=== PATIENT | female | born 1955 | race Caucasian/White ===

== ENCOUNTER 2016-08-28 12:33 | Emergency (ER) | payer OTHER ==
[2016-08-28 12:40] VITALS: RESP 16; TEMP 98.4
--- NOTE | 2016-08-28 13:24 | CPEKG ---
Heart Rate: 79 RR Interval: 759 P-R Interval: 164 QRSD Interval: 82 QT Interval: 376 QTC Interval: 432 P Reader: 17 QRS Reader: -33 T Wave Reader: 36 EKG Severity - OTHERWISE NORMAL ECG - EKG Impression: SINUS RHYTHM EKG Impression: LEFT AXIS DEVIATION Electronically Signed By: Nadine Griffith 28-Aug-2016 15:14:52
[2016-08-28] MEDS ORDERED: NS 1,000 ML IV ONE (13:59)
--- NOTE | 2016-08-28 14:00 | EDPHY ---
H & P Stated Complaint: palpitations/feels heart racing/icreased urination Time Seen by Provider: 08/28/16 13:26 HPI/ROS: CHIEF COMPLAINT: Palpitations HISTORY OF PRESENT ILLNESS: The patient is a 61 year old female presenting with palpitations that started at 10:30 am. The patient has a monitor that showed rate reaching the 140s. These palpitations lasted for about 1.5 hours. During that time she felt short of breath with intermittent irregular heart beats. She has a significant family history of atrial fibrillation requiring ablation. She denies chest pain. Her symptoms have resolved, she currently feels fatigued. Of note, she recently had upper respiratory symptoms including cough. She also states she's recently had frequent UTIs. REVIEW OF SYSTEMS: Aside from elements discussed in the HPI, a comprehensive 10-point review of systems was reviewed and is negative. PAST MEDICAL HISTORY: Hypothyroid, Depression SOCIAL HISTORY: at bedside. VITAL SIGNS: Reviewed by me GENERAL: Well-developed, well-nourished, resting comfortably in no respiratory distress. HEENT: Atraumatic. Eyes: No icterus, no injection. Mouth: moist mucous membranes. No erythema or lesions. Neck: supple with no adenopathy. LUNGS: Clear to auscultation bilaterally, no wheezes, rhonchi or rales. CARDIAC: Regular rate and rhythm, no rubs, murmurs or gallops. ABDOMEN: Soft, nontender, nondistended, bowel sounds normal. BACK: No CVA tenderness. EXTREMITIES: No trauma. No edema. Range of motion is normal throughout. NEURO: Alert and oriented, grossly nonfocal. SKIN: Warm and dry, no rash. PSYCHIATRIC: Normal mentation, no agitation. Portions of this note were transcribed by a medical case worker. I personally performed a history, physical exam, medical decision making, and confirmed accuracy of information the transcribed note. Source: Patient - Personal History Current Tetanus/Diphtheria Vaccine: Yes - Medical/Surgical History Hx Asthma: No Hx Chronic Respiratory Disease: No Hx Diabetes: No Hx Cardiac Disease: No Hx Renal Disease: No Hx Cirrhosis: No Hx Alcoholism: No Hx HIV/AIDS: No Hx Splenectomy or Spleen Trauma: No Other PMH: HYPOTHYROID, DEPRESSION - Social History Smoking Status: Former smoker Constitutional: Initial Vital Signs Temperature (C) 36.9 C 08/28/16 12:38 Heart Rate 98 08/28/16 12:38 Respiratory Rate 16 08/28/16 12:38 Blood Pressure 162/91 H 08/28/16 12:38 O2 Sat (%) 95 08/28/16 12:38 O2 Delivery Mode Room Air Allergies/Adverse Reactions: Sulfa (Sulfonamide Antibiotics) Allergy (Verified 08/28/16 12:34) Home Medications: Medication Instructions Recorded Progesterone 04/10/15 Synthroid 04/10/15 Trazodone HCl 04/10/15 Ambien 08/28/16 Diclofenac Sodium 08/28/16 Amoxicillin Trihydrate 500 mg PO TID #30 cap 09/02/16 [Amoxicillin] Fluticasone Nasal [Flonase Nasal 2 sprays NASAL DAILY #1 mdi 09/02/16 [place] (RX)] Medical Decision Making - Diagnostics EKG Interpretation: 12-LEAD EKG: Please see the full report in [facility]. My interpretation: Normal sinus rhythm Imaging: X-ray: Chest x-ray was obtained. I viewed the images myself on the PACS system. My interpretation of the images is: No infiltrate, no cardiomegaly. The radiologist interpretation is pending at this time. I discussed the x-ray findings with the patient. ED Course/Re-evaluation: Evaluation the emergency department included labs with a troponin which were all normal. TSH was normal. D-dimer was negative. EKG demonstrates sinus rhythm. No arrhythmias noted on the monitor while the patient was in the emergency department. Long discussion was held with the patient regarding follow-up and consideration of Holter monitoring. Differential Diagnosis: Differential diagnoses for the patient's sensation of palpitations was considered including but not limited to sinus tachycardia, PACs, PVCs, SVT, atrial fibrillation, atrial flutter, anxiety, panic attack. - Data Points Laboratory Results: Laboratory Results 08/28/16 14:00 08/28/16 14:00 Departure - Departure Disposition: Home, Routine, Self-Care Clinical Impression: Palpitations Condition: Good Instructions: Palpitations (ED) Additional Instructions: Your evaluation in the emergency department shows no obvious cause of your palpitations. I suggest that she follow up with Dr. Sanchez and obtained urgent Holter monitoring. Return to the emergency department or seek care urgently if you develop recurrent palpitations, lightheadedness, shortness of breath, dizziness, fevers , chills, chest pain, cough, or other concerns. Referrals: Dottie Ravi MD [Primary Care Provider] - As per Instructions Report Scribed for: Nadine Griffiht Report Scribed by: Essence Moss Date of Report: 08/28/16 Time of Report: 14:00
[2016-08-28 14:20] LABS: % IMMATURE GRANULYOCYTES 0.3 % (0.0-1.1); ABSOLUTE IMMATURE GRANULOCYTES 0.02 10^3/uL (0.00-0.10); ADD DIFF? NO; ADD MORPH? NO; ADD SCAN? NO; ATYPICAL LYMPHOCYTE FLAG 0 (0-99); FRAGMENT RBC FLAG 0 (0-99); HEMATOCRIT 45.6 % (38.0-47.0); HEMOGLOBIN 15.9 g/dL (12.6-16.3); LEFT SHIFT FLG 0 (0-99); LIPEMIA HEMOLYSIS FLAG 90 (0-99); MEAN CELL HEMOGLOBIN 30.8 pg (27.9-34.1); MEAN CELL HEMOGLOBIN CONCENTR. 34.9 g/dL (32.4-36.7); MEAN CELL VOLUME 88.4 fL (81.5-99.8); MEAN PLATELET VOLUME 9.9 fL (8.7-11.7); PLATELET CLUMPS FLAG 0 (0-99); PLATELET COUNT 221 10^3/uL (150-400); RED BLOOD CELL COUNT 5.16 10^6/uL (4.18-5.33); RED CELL DISTRIBUTION WIDTH 13.1 % (11.5-15.2)
[2016-08-28 14:36] LABS: ANION GAP 11 mEq/L (8-16); CALCIUM 9.4 mg/dL (8.5-10.4); CARBON DIOXIDE 26 mEq/l (22-31); CHLORIDE 105 mEq/L (97-110); CREATININE 0.9 mg/dL (0.6-1.0); GLOMERULAR FILTRATION RATE > 60; GLUCOSE 100 mg/dL (70-100); POTASSIUM 4.3 mEq/L (3.5-5.2); SODIUM 142 mEq/L (134-144)
--- NOTE | 2016-08-28 14:42 | DX ---
Chest, PA and Lateral History: Cough. Tachycardia. Findings: There is mild-moderate bronchial wall thickening. Lung volumes are mildly prominent. There is no focal consolidation, infiltrate or effusion. Heart size and pulmonary vascularity are normal. T here is no evidence for pneumothorax or pneumomediastinum. EKG leads overlie the chest. Impression: Possible airways disease without pneumonia. No evidence for CHF.
[2016-08-28 14:49] LABS: TROPONIN I < 0.012 ng/mL (0-0.034)
[2016-08-28 15:15] VITALS: BP 145/106; PULSE 82; O2SAT 94
== END 2016-08-28 15:15 | disposition home or self-care (01) ==
DX: R00.2 Palpitations (principal); Z87.891 Personal history of nicotine dependence

== ENCOUNTER 2016-09-02 19:47 | Emergency (ER) | payer OTHER ==
[2016-09-02 20:15] VITALS: BP 141/83; PULSE 77; RESP 16; TEMP 97.9; O2SAT 95
--- NOTE | 2016-09-02 20:30 | UCPHY ---
H & P Time Seen by Provider: 09/02/16 20:13 Patient Type: Established HPI/ROS: This patient reports 10 day history of nasal congestion associated with some increasing facial pressure to the frontal sinus more than maxillary sinuses bilaterally. She also has a feeling of ear pressure today right more than left ear. The ear symptoms just started today with no clear exacerbating or alleviating factors. She has tried [id number] medications without much improvement. ROS: No high fevers or chills. No other constitutional symptoms. HEENT: No drainage from the ear. Neuro: No confusion. No neck stiffness. Pulmonary: No coughing. 5 point ROS is otherwise negative. Past Medical/Surgical History: Otherwise healthy Smoking Status: Former smoker Physical Exam: Physical Exam Vital signs are normal. General: No acute distress HEENT: Nose: Yellow discharge. Minimal sinus tenderness to percussion to the right frontal sinus. Ears: External canals clear on the right TM is clear with a clear effusion left external canal and TM are clear Eyes: Pupils equal and react to light. Extraocular motions are intact. Lungs: Clear to auscultation bilaterally with no rales rhonchi or wheeze. No respiratory distress. Cardiac: Regular rate and rhythm with no murmur gallop or rub. Skin: No rash or pallor. Neuro: Alert and oriented x3 with no sensorimotor deficits. Viral versus bacterial sinusitis and serous otitis Constitutional: Initial Vital Signs Temperature (C) 36.6 C 09/02/16 20:12 Heart Rate 77 09/02/16 20:12 Respiratory Rate 16 09/02/16 20:12 Blood Pressure 141/83 H 09/02/16 20:12 O2 Sat (%) 95 09/02/16 20:12 O2 Delivery Mode Room Air Allergies/Adverse Reactions: Sulfa (Sulfonamide Antibiotics) Allergy (Verified 08/28/16 12:34) Home Medications: Medication Instructions Recorded Progesterone 04/10/15 Synthroid 04/10/15 Trazodone HCl 04/10/15 Ambien 08/28/16 Diclofenac Sodium 08/28/16 Amoxicillin Trihydrate 500 mg PO TID #30 cap 09/02/16 [Amoxicillin] Fluticasone Nasal [Flonase Nasal 2 sprays NASAL DAILY #1 mdi 09/02/16 [place] (RX)] Departure - Departure Disposition: Home, Routine, Self-Care Clinical Impression: Acute rhinosinusitis Condition: Good Instructions: Serous Otitis Media (ED) Additional Instructions: Diagnosis: Serous otitis 2. Rhinosinusitis Plan: Humidifier Flonase steroid nasal spray If you have worsening symptoms despite the Flonase over the next 3-5 days then start Amoxil in addition. Ibuprofen and Tylenol as needed Return for any significant worsening despite the treatment plan [place]errals: [place],. [Primary Care Provider] - As per Instructions Prescriptions: Amoxicillin Trihydrate [Amoxicillin] 500 mg PO TID #30 cap Fluticasone Nasal [Flonase Nasal [place] (RX)] 2 sprays NASAL DAILY #1 mdi - PQRS PQRS Measurement: NA
== END 2016-09-02 20:51 | disposition home or self-care (01) ==
LOC: CED 19:47
DX: H65.93 Unspecified nonsuppurative otitis media, bilateral (principal); J01.90 Acute sinusitis, unspecified; Z87.891 Personal history of nicotine dependence
CPT/HCPCS: 99214-PO; G0463-PO

== ENCOUNTER 2016-09-05 12:51 | Observation (INO) | payer OTHER ==
[2016-09-05] MEDS ORDERED: DILTIAZEM 125 MG in D5W 125 ML IV ONE (12:58)
[2016-09-05] MEDS ORDERED: ASPIRIN 81 MG CHEWABLE TAB PO ONE (12:58)
[2016-09-05] MEDS ORDERED: NS 1,000 ML IV ONE (12:58)
[2016-09-05] MEDS ORDERED: DILTIAZEM 25 MG/5 ML VIAL IVP ONE (12:58)
--- NOTE | 2016-09-05 13:03 | CPEKG ---
Heart Rate: 137 RR Interval: 438 QRSD Interval: 82 QT Interval: 304 QTC Interval: 459 QRS [place]: -20 T Wave [place]: 59 EKG Severity - ABNORMAL ECG - EKG Impression: ATRIAL FIBRILLATION EKG Impression: BORDERLINE LEFT AXIS DEVIATION EKG Impression: ST DEPRESSION, CONSIDER ISCHEMIA, ANT-LAT LDS Electronically Signed By: Carolann Edwards 06-Sep-2016 09:52:48
[2016-09-05 13:04] LABS: % IMMATURE GRANULYOCYTES 0.4 % (0.0-1.1); ABSOLUTE IMMATURE GRANULOCYTES 0.03 10^3/uL (0.00-0.10); ADD DIFF? NO; ADD MORPH? NO; ADD SCAN? NO; ATYPICAL LYMPHOCYTE FLAG 10 (0-99); FRAGMENT RBC FLAG 0 (0-99); HEMOGLOBIN 16.9 g/dL (12.6-16.3); LEFT SHIFT FLG 0 (0-99); LIPEMIA HEMOLYSIS FLAG 90 (0-99); MEAN CELL HEMOGLOBIN 31.3 pg (27.9-34.1); MEAN PLATELET VOLUME 9.4 fL (8.7-11.7); PLATELET CLUMPS FLAG 10 (0-99); PLATELET COUNT 348 10^3/uL (150-400); RED CELL DISTRIBUTION WIDTH 13.3 % (11.5-15.2)
--- NOTE | 2016-09-05 13:05 | EDPHY ---
H & P HPI/ROS: HPI CHIEF COMPLAINT: Rapid heart rate HISTORY OF PRESENT ILLNESS: This patient very pleasant 59-year-old female, significant past medical history for obstructive sleep apnea, presents emergency room by EMS with fast heart rate and palpitations, lightheadedness and tingling all over body. Patient tells me for the past 2 weeks she has had problems with fast heart rate. Patient tells me that she has been seen by [facility] and has been wearing a Holter monitor to capture this fast heart rate. She denies history of cardiac problems, she denies coronary artery disease or having a stress test. She denies chest pain. Denies shortness of breath. It was noted by EMS that her heart rate is in the 180s AFib with RVR. Currently upon arrival to the emergency room heart rate is in the 150s, she is in AFib with RVR. A Valsalva maneuver was attempted when arrived however did not break her AFib. She does not have chest pain at this time. Past Medical History: Obstructive sleep apnea Past Surgical History: Denies significant surgical history Social History: Denies use of drugs, alcohol, tobacco products Family History: noncontributory ROS REVIEW OF SYSTEMS: A comprehensive 10 point review of systems is otherwise negative aside from elements mentioned in the history of present illness. Exam Constitutional appears well, nontoxic, triage nursing summary reviewed, vital signs reviewed, awake/alert. Eyes normal conjunctivae and sclera, EOMI, PERRLA. HENT normal inspection, atraumatic, moist mucus membranes, no epistaxis, neck supple/ no meningismus, no raccoon eyes. Respiratory clear to auscultation bilaterally, normal breath sounds, no respiratory distress, no wheezing. Cardiovascular tachycardic, irregular, irregular rhythm , no murmur, no edema , distal pulses normal. Gastrointestinal soft, non-tender, no rebound, no guarding, normal bowel sounds, no distension, no pulsatile mass. Genitourinary no CVA tenderness. Musculoskeletal no midline vertebral tenderness, full range of motion, no calf swelling, no tenderness of extremities, no meningismus, good pulses, neurovascularly intact. Skin pink, warm, & dry, no rash, skin atraumatic. Neurologic awake, alert and oriented x 3, AAOx3, moves all 4 extremities equally, motor intact, sensory intact, CN II-XII intact, normal cerebellar, normal vision, normal speech. Psychiatric normal mood/affect. Heme/Lymph/Immune no lymphadenopathy. Differential Diagnosis: includes but is not limited to in a particular order, AFib with RVR, ACS, atypical chest pain, pneumothorax, pneumonia, pulmonary embolism, aortic dissection, congestive heart failure, tumor, musculoskeletal pain, esophageal pain, GERD, peptic ulcer disease, pancreatitis Medical Decision Making: This patient had an IV established be placed on full personnel counselor, she will have an EKG, chest x-ray, blood work it is noted she is in AFib with RVR should be given diltiazem bolus and diltiazem drip. She is not hypotensive. Re-evaluation: EKG interpretation by me on record in [facility] system. Impression time of EKG 1302: this EKG shows AFib rate of [address] depression upsloping in V4 V5 V6 and V3 this is most likely rate-related ischemia. EKG interpretation by me on record in [facility] system. Impression this time of EKG 1326, this is normal sinus rhythm rate of 77 I do not appreciate any significant ST depression or ST elevation or significant abnormality or T-wave abnormality. This EKG is back in sinus rhythm from her previous EKG of AFib with RVR with ST depression from rate-related changes. 1353: Re-evaluation this time this patient is resting comfortably she is not having any chest pain. Blood work, EKG, cardiac marker, chest x-ray all reviewed. She is back in sinus rhythm after diltiazem bolus 20 mg. I did recommend to her that we admit her overnight for AFib with RVR and further cardiac evaluation she has never had a stress test, never had formal evaluation of her arm with an echocardiogram. ED x-ray chest one view: Bilateral airway disease, consider bronchitis, image interpreted myself. No focal pneumonia visualized. 1439: spent a lengthy time with family and patient at bedside discussing options about going home with AFib on diltiazem on Eliquis however patient has declined she does not go home she feels much more comfortable coming to the hospital for evaluation with cardiology specifically she is requesting Dr. Almanzar to see and evaluate her. However explained that he is not on-call however somebody from [facility] can evaluate her. At this time she is hemodynamically stable without any chest pain. She is out of AFib. I have consult the hospitalist service and spoke with Dr. Harp who agrees to admit this patient. Of note this patient has been given Lovenox 1 milligram/ kilogram. Source: Patient, Family, EMS - Medical/Surgical History Hx Asthma: No Hx Chronic Respiratory Disease: No Hx Diabetes: No Hx Cardiac Disease: No Hx Renal Disease: No Hx Cirrhosis: No Hx Alcoholism: No Hx HIV/AIDS: No Hx Splenectomy or Spleen Trauma: No Other PMH: HYPOTHYROID, DEPRESSION, sleep apnea - Social History Smoking Status: Former smoker Constitutional: Initial Vital Signs Temperature (C) 36.8 C 09/05/16 12:51 Heart Rate 166 H 09/05/16 12:51 Respiratory Rate 20 09/05/16 12:51 Blood Pressure 143/111 H 09/05/16 12:51 O2 Sat (%) 99 09/05/16 12:51 O2 Delivery Mode Room Air O2 (L/minute) 2 Allergies/Adverse Reactions: Sulfa (Sulfonamide Antibiotics) Allergy (Verified 08/28/16 12:34) Home Medications: Medication Instructions Recorded Progesterone 04/10/15 Synthroid 04/10/15 Trazodone HCl 04/10/15 Ambien 08/28/16 Diclofenac Sodium 08/28/16 Amoxicillin Trihydrate 500 mg PO TID #30 cap 09/02/16 [Amoxicillin] Fluticasone Nasal [Flonase Nasal 2 sprays NASAL DAILY #1 mdi 09/02/16 [place] (RX)] Medical Decision Making - Data Points Laboratory Results: Laboratory Results 09/05/16 12:30 09/05/16 12:30 09/05/16 12:30 WBC 7.82 10^3/uL (3.80-9.50) RBC 5.40 H 10^6/uL (4.18-5.33) Hgb 16.9 H g/dL (12.6-16.3) Hct 47.0 % (38.0-47.0) MCV 87.0 fL (81.5-99.8) MCH 31.3 pg (27.9-34.1) MCHC 36.0 g/dL (32.4-36.7) RDW 13.3 % (11.5-15.2) Plt Count 348 10^3/uL (150-400) MPV 9.4 fL (8.7-11.7) Neut % (Auto) 59.2 % (39.3-74.2) Lymph % (Auto) 27.4 % (15.0-45.0) [place] % (Auto) 6.1 % (4.5-13.0) Eos % (Auto) 5.6 % (0.6-7.6) Baso % (Auto) 1.3 % (0.3-1.7) Nucleat RBC Rel Count 0.0 % (0.0-0.2) Absolute Neuts (auto) 4.63 10^3/uL (1.70-6.50) Absolute Lymphs (auto) 2.14 10^3/uL (1.00-3.00) Absolute Monos (auto) 0.48 10^3/uL (0.30-0.80) Absolute Eos (auto) 0.44 H 10^3/uL (0.03-0.40) Absolute Basos (auto) 0.10 10^3/uL (0.02-0.10) Absolute Nucleated RBC 0.00 10^3/uL (0-0.01) Immature Gran % 0.4 % (0.0-1.1) Immature Gran # 0.03 10^3/uL (0.00-0.10) PT 12.6 SEC (12.0-15.0) INR 0.95 (0.83-1.16) APTT 27.9 SEC (23.0-38.0) Sodium 144 mEq/L (134-144) Potassium 4.3 mEq/L (3.5-5.2) Chloride 108 mEq/L (97-110) Carbon Dioxide 21 L mEq/l (22-31) Anion Gap 15 mEq/L (8-16) BUN 13 mg/dL (7-23) Creatinine 0.9 mg/dL (0.6-1.0) Estimated GFR > 60 Glucose 111 H mg/dL (70-100) Calcium 10.3 mg/dL (8.5-10.4) Magnesium 2.2 mg/dL (1.6-2.3) Total Bilirubin 1.0 mg/dL (0.1-1.4) Conjugated Bilirubin 0.5 mg/dL (0.0-0.5) Unconjugated Bilirubin 0.5 mg/dL (0.0-1.1) AST 26 IU/L (14-46) ALT 33 IU/L (9-52) Alkaline Phosphatase 74 IU/L (38-126) Creatine Kinase 56 IU/L (0-156) CK-MB (CK-2) Fraction 0.71 ng/mL (0-3.19) Troponin I < 0.012 ng/mL (0-0.034) NT-Pro-B Natriuret Pep 478 H pg/mL (0-125) Total Protein 8.2 g/dL (6.3-8.2) Albumin 4.8 g/dL (3.5-5.0) Lipase 129.0 IU/L (23-300) Medications Given: Discontinued Medications Aspirin (Aspirin) 324 mg PO EDNOW ONE Stop: 09/05/16 12:59 Last Admin: 09/05/16 13:16 Dose: Not Given Diltiazem HCl (Cardizem 25 Mg/5 Ml Vial) 20 mg IVP EDNOW ONE Stop: 09/05/16 12:59 Last Admin: 09/05/16 13:10 Dose: 20 mg Enoxaparin Sodium (Lovenox) 90 mg SC EDNOW ONE Stop: 09/05/16 13:18 Last Admin: 09/05/16 14:19 Dose: Not Given Enoxaparin Sodium (Lovenox) 90 mg SC ONCE ONE Stop: 09/05/16 14:01 Last Admin: 09/05/16 14:19 Dose: 90 mg Diltiazem HCl 125 mg/ Dextrose 150 mls @ 0 mls/hr IV EDNOW ONE; As Directed PRN Reason: Protocol Stop: 09/05/16 12:59 Last Admin: 09/05/16 14:18 Dose: Not Given Sodium Chloride (Ns) 1,000 mls @ 0 mls/hr IV ONCE ONE PRN Reason: As Directed Stop: 09/05/16 12:59 Last Admin: 09/05/16 12:58 Dose: 1,000 mls Departure - Departure Disposition: [facility] Inpatient Acute Clinical Impression: Atrial fibrillation with RVR Condition: Fair Referrals: Dottie Ravi MD [Primary Care Provider] - As per Instructions
[2016-09-05 13:14] LABS: APTT 27.9 SEC (23.0-38.0); INR 0.95 (0.83-1.16); PROTIME(PATIENT) 12.6 SEC (12.0-15.0)
[2016-09-05] MEDS ORDERED: ENOXAPARIN 80 MG/0.8 ML SYR SC ONE (13:17)
[2016-09-05 13:22] LABS: ALANINE AMINOTRANSFERASE 33 IU/L (9-52); ALBUMIN 4.8 g/dL (3.5-5.0); ALKALINE PHOSPHATASE 74 IU/L (38-126); ANION GAP 15 mEq/L (8-16); ASPARTATE AMINOTRANSFERASE 26 IU/L (14-46); BILIRUBIN-CONJUGATED 0.5 mg/dL (0.0-0.5); BILIRUBIN-UNCONJUGATED 0.5 mg/dL (0.0-1.1); CALCIUM 10.3 mg/dL (8.5-10.4); CARBON DIOXIDE 21 mEq/l (22-31); CHLORIDE 108 mEq/L (97-110); CREATININE 0.9 mg/dL (0.6-1.0); GLOMERULAR FILTRATION RATE > 60; GLUCOSE 111 mg/dL (70-100); MAGNESIUM 2.2 mg/dL (1.6-2.3); POTASSIUM 4.3 mEq/L (3.5-5.2); SODIUM 144 mEq/L (134-144); TOTAL PROTEIN 8.2 g/dL (6.3-8.2)
--- NOTE | 2016-09-05 13:28 | CPEKG ---
Heart Rate: 77 RR Interval: 779 P-R Interval: 180 QRSD Interval: 102 QT Interval: 388 QTC Interval: 440 P [place]: 58 QRS [place]: -17 T Wave [place]: 45 EKG Severity - OTHERWISE NORMAL ECG - EKG Impression: SINUS RHYTHM EKG Impression: BORDERLINE LEFT AXIS DEVIATION Electronically Signed By: Carolann Edwards 06-Sep-2016 09:51:58
[2016-09-05 13:34] LABS: CREATINE KINASE-MB FRACTION 0.71 ng/mL (0-3.19); TROPONIN I < 0.012 ng/mL (0-0.034)
--- NOTE | 2016-09-05 13:44 | DX ---
Chest, One View Portable - September 05, 2016, at 1321 hours History: Chest pain. Comparison: August 28, 2016 Findings: Cardiac silhouette is normal in size. Increasing bilateral peribronchial thickening. No pn [place], congestive heart failure, pleural effusion, or pneumothorax. Impression: 1. Worsening bilateral airways disease. 2. Consider chest two views when the patient's medical condition permits.
[2016-09-05] MEDS ORDERED: ENOXAPARIN 100 MG/ML SYR SC ONE (14:00)
--- NOTE | 2016-09-05 15:50 | PDEACUHP ---
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 She has suffered from palpitations intermittently over the past 2 weeks. She recently completed a Holter monitor during which time she had palpitations. She is awaiting an appt at [facility] to review results. However, today, she developed more palpitations and ultimately developed some lightheadedness and some tingling in her arms. Denies CP or SOB. In the ED, she was found to be in A fib with RVR. She received 20 mg IV Diltiazem and spontaneously converted to NSR. Her symptoms completely resolved and the pt was offered discharge home with Diltiazem and Eliquis, but she preferred to stay for further workup and Cardiology consultation. She is admitted to the [facility]. History Information - Allergies/Home Medication List Allergies/Adverse Reactions: Sulfa (Sulfonamide Antibiotics) Allergy (Verified 08/28/16 12:34) Home Medications: Levothyroxine [Synthroid 125 mcg (*)] 125 mcg PO DAILY 04/10/15 [Last Taken ] Progesterone,Micronized [Progesterone] 100 mg PO HS 04/10/15 [Last Taken ] traZODone [traZODONE 50MG (*)] 50 mg PO 04/10/15 [Last Taken 09/03/16] Zolpidem Tartrate [Ambien 10 mg] 5 mg PO 08/28/16 [Last Taken 09/04/16] Estradiol [Estradiol Transdermal Patch] 1 each TD SUWE 09/05/16 [Last Taken ] Fluticasone Propionate [Flonase Allergy Relief] 2 sprays NS 09/05/16 [Last Taken 09/04/16] Herbals/Supplements -Info Only 1 ea PO DAILY 09/05/16 [Last Taken 09/04/16] Liothyronine Sodium [Cytomel 5 mcg (*)] 5 mcg PO DAILY 09/05/16 [Last Taken ] cycloSPORINE 0.05% [Restasis Opht Drops(*)] 2 drop EACHEYE HS 09/05/16 [Last Taken 09/04/16] I have personally reviewed and updated: family history, medical history, social history, surgical history - Past Medical History Additional medical history: sleep apnea, post-menopausal, hypothyroidism - Surgical History Reports: no pertinent surgical hx - Family History Additional family history: mom and multiple siblings required ablation for A fib - Social History Smoking Status: Former smoker Alcohol Use: None Drug Use: None Review of Systems ROS: 10pt was reviewed & negative except for what was stated in HPI & below Physical Exam Temp Pulse Resp BP Pulse Ox 36.8 C 75 18 135/99 H 98 09/05/16 12:51 09/05/16 14:47 09/05/16 14:47 09/05/16 14:47 09/05/16 14:47 Constitutional: no apparent distress Eyes: PERRL Ears, Nose, Mouth, Throat: moist mucous membranes Cardiovascular: regular rate and rhythym, no murmur, rub, or gallop Respiratory: no respiratory distress, clear to auscultation Gastrointestinal: normoactive bowel sounds, soft, non-tender abdomen Skin: warm Musculoskeletal: other (tr b/l peripheral edema) Neurologic: AAOx3 Psychiatric: interacting appropriately Lab Data & Imaging Review 09/05/16 12:30 09/05/16 12:30 WBC 7.82 10^3/uL (3.80-9.50) 09/05/16 12:30 RBC 5.40 10^6/uL (4.18-5.33) H 09/05/16 12:30 Hgb 16.9 g/dL (12.6-16.3) H 09/05/16 12:30 Hct 47.0 % (38.0-47.0) 09/05/16 12:30 MCV 87.0 fL (81.5-99.8) 09/05/16 12:30 MCH 31.3 pg (27.9-34.1) 09/05/16 12:30 MCHC 36.0 g/dL (32.4-36.7) 09/05/16 12:30 RDW 13.3 % (11.5-15.2) 09/05/16 12:30 Plt Count 348 10^3/uL (150-400) 09/05/16 12:30 MPV 9.4 fL (8.7-11.7) 09/05/16 12:30 Neut % (Auto) 59.2 % (39.3-74.2) 09/05/16 12:30 Lymph % (Auto) 27.4 % (15.0-45.0) 09/05/16 12:30 Greer % (Auto) 6.1 % (4.5-13.0) 09/05/16 12:30 Eos % (Auto) 5.6 % (0.6-7.6) 09/05/16 12:30 Baso % (Auto) 1.3 % (0.3-1.7) 09/05/16 12:30 Nucleat RBC Rel Count 0.0 % (0.0-0.2) 09/05/16 12:30 Absolute Neuts (auto) 4.63 10^3/uL (1.70-6.50) 09/05/16 12:30 Absolute Lymphs (auto) 2.14 10^3/uL (1.00-3.00) 09/05/16 12:30 Absolute Monos (auto) 0.48 10^3/uL (0.30-0.80) 09/05/16 12:30 Absolute Eos (auto) 0.44 10^3/uL (0.03-0.40) H 09/05/16 12:30 Absolute Basos (auto) 0.10 10^3/uL (0.02-0.10) 09/05/16 12:30 Absolute Nucleated RBC 0.00 10^3/uL (0-0.01) 09/05/16 12:30 Immature Gran % 0.4 % (0.0-1.1) 09/05/16 12:30 Immature Gran # 0.03 10^3/uL (0.00-0.10) 09/05/16 12:30 PT 12.6 SEC (12.0-15.0) 09/05/16 12:30 INR 0.95 (0.83-1.16) 09/05/16 12:30 APTT 27.9 SEC (23.0-38.0) 09/05/16 12:30 Sodium 144 mEq/L (134-144) 09/05/16 12:30 Potassium 4.3 mEq/L (3.5-5.2) 09/05/16 12:30 Chloride 108 mEq/L (97-110) 09/05/16 12:30 Carbon Dioxide 21 mEq/l (22-31) L 09/05/16 12:30 Anion Gap 15 mEq/L (8-16) 09/05/16 12:30 BUN 13 mg/dL (7-23) 09/05/16 12:30 Creatinine 0.9 mg/dL (0.6-1.0) 09/05/16 12:30 Estimated GFR > 60 09/05/16 12:30 Glucose 111 mg/dL (70-100) H 09/05/16 12:30 Calcium 10.3 mg/dL (8.5-10.4) 09/05/16 12:30 Magnesium 2.2 mg/dL (1.6-2.3) 09/05/16 12:30 Total Bilirubin 1.0 mg/dL (0.1-1.4) 09/05/16 12:30 Conjugated Bilirubin 0.5 mg/dL (0.0-0.5) 09/05/16 12:30 Unconjugated Bilirubin 0.5 mg/dL (0.0-1.1) 09/05/16 12:30 AST 26 IU/L (14-46) 09/05/16 12:30 ALT 33 IU/L (9-52) 09/05/16 12:30 Alkaline Phosphatase 74 IU/L (38-126) 09/05/16 12:30 Creatine Kinase 56 IU/L (0-156) 09/05/16 12:30 CK-MB (CK-2) Fraction 0.71 ng/mL (0-3.19) 09/05/16 12:30 Troponin I < 0.012 ng/mL (0-0.034) 09/05/16 12:30 NT-Pro-B Natriuret Pep 478 pg/mL (0-125) H 09/05/16 12:30 Total Protein 8.2 g/dL (6.3-8.2) 09/05/16 12:30 Albumin 4.8 g/dL (3.5-5.0) 09/05/16 12:30 Lipase 129.0 IU/L (23-300) 09/05/16 12:30 Assessment & Plan Assessment: Atrial fibrillation with RVR (Acute) - new onset. Back in NSR after IV dilt in ED. She also received a 1 mg / kg Lovenox. Chads-vasc score 2, 2.8% stroke risk, based on htn and gender. Pt has h/o htn, but not currently treated, though bp >140/90 here. -Check echo, TSH (?iatrogenic hyperthyroidism) -monitor on tele -cont rate control with short acting diltiazem, transition to long acting on discharge if tolerates well. -will transition from lovenox to eliquis, starting in am. Full PARQ completed regarding risk/benefit of anti-coagulation -initial trop neg, will repeat one more -cardiology consult per pt request Hypothyroidism - She reports her last TSH was normal, but has had low-latanya TSH in past. Will recheck TSH now and add on T3,T4 if low to ensure no iatrogenic hyperthyroidism contributing to new onset A fib. INGRID - home CPAP Post-menopausal - she is on estrogen patch and oral progesterone. This certainly increases her overall cardiovascular risk, but unclear if this could be contributory to A fib. Full code Dispo - obs, likely home in am after echo and cardiology consult
[2016-09-05] MEDS ORDERED: CYCLOSPORINE 0.05% 1 EACH BOX EACHEYE SCH (21:00)
[2016-09-05] MEDS ORDERED: traZODone 50 MG TAB PO SCH (21:00)
[2016-09-05] MEDS ORDERED: NON-FORMULARY NEW DRUG (Fluticasone Propionate [Flonase Allergy Relief] 2 SPRAYS) NS SCH (21:00)
[2016-09-05] MEDS ORDERED: NON-FORMULARY NEW DRUG (Zolpidem Tartrate [Ambien 10 Mg] 5 MG) PO SCH ×2 (21:00)
[2016-09-05] MEDS ORDERED: PROGESTERONE,MICR 100 MG CAP PO SCH (21:00)
[2016-09-05] MEDS ORDERED: FLUTICASONE NASAL 120 SPRAYS/16 GM MDI EACHNARE SCH (21:00)
[2016-09-05] MEDS ORDERED: ZOLPIDEM TARTRATE 5 MG TAB PO SCH (21:00)
[2016-09-05] MEDS: DILTIAZEM 30 MG TAB PO SCH (21:25)
[2016-09-06] MEDS: DILTIAZEM 30 MG TAB PO SCH ×3 (00:16→11:58)
[2016-09-06 05:34] VITALS: RESP 16
[2016-09-06] MEDS ORDERED: APIXABAN 5 MG TAB PO SCH (06:00)
[2016-09-06] MEDS ORDERED: LEVOTHYROXINE 125 MCG TAB PO SCH (06:00)
[2016-09-06 08:30] VITALS: BP 113/70; PULSE 65; TEMP 97.7; O2SAT 96
[2016-09-06] MEDS ORDERED: LIOTHYRONINE SODIUM 5 MCG TAB PO SCH (09:00)
[2016-09-06] MEDS ORDERED: IBUPROFEN 600 MG TAB PO PRN (09:21)
--- NOTE | 2016-09-06 09:36 | ECHO ---
[id number] + + [address] : : [place] [address] : : [phone] + + Adult Echocardiographic Report + -------+ :Name: CANDI GRECO WStudy Date: 09/06/2016 08:08 AM BP: 119/75 mmH g : : Hospital Admission Number: [id number] Locati on: 141: :: 1955 Gender: Female Height: 65 in : :Age: 61 yrs Race: WH Weight: 198 lb : :Reason For Study: new afib : : BSA: 2.0 meter s2 : :History: new onset afib; now NSR : + -------+ MMode/2D Measurements & Calculations IVSd: 0.95 cm RVDd: 2.9 cm FS: 36.4 % Ao root diam: LVPWd: 0.92 cm LVIDd: 4.6 cm EDV(Teich): 2.1 cm LVIDs: 2.9 cm 97.8 ml LA dimension: ESV(Teich): 3.7 cm 33.0 ml EF(Teich): 66.2 % LVLd ap4: 7.5 cm SV(MOD-sp4): EDV(MOD-sp4): 68.0 ml 94.0 ml LVLs ap4: 5.7 cm ESV(MOD-sp4): 26.0 ml EF(MOD-sp4): 72.3 % Normal Measurement Values: + + :LVIDd (3.5-5.7cm) IVSd (0.6-1.1cm) LVPWd (0.6-1.1cm) Aortic Root (2.0-3.7cm)Left Atrium (1.5-4.0cm): :LV Vol(d) (76-115ml) LV Vol(s) (29-48ml) Ejec Fraction (50-65%)PV Kemal (0.6- 1.2m/s) TV Kemal (0.4-1.0m/s) : :MV E Kemal (0.8-1.0m/s)MV A Kemal (0.3-1.0m/s)LVOT Kemal (0.7-1.2m/s) Asc Ao Kemal ( 0.9-1.8m/s) : + + Doppler Measurements & Calculations MV E max kemal: Ao V2 max: LV V1 max: PA V2 max: 104.0 cm/sec 176.0 cm/sec 152.0 cm/sec 114.0 cm/sec MV A max kemal: Ao max PG: LV V1 max PG: PA max P.0 cm/sec 12.4 mmHg 9.2 mmHg 5.2 mmHg MV E/A: 0.98 MV dec time: 0.21 sec TR max kemal: 286.0 cm/sec TR max P.7 mmHg RAP systole: 10.0 mmHg RVSP(TR): 42.7 mmHg Left Ventricle The left ventricle is normal in size and function. There is borderline concentric left ventricular hypertrophy. Ejection Fraction = 65-70%. The left ventricular ejection fraction is calculated at 66.2 %. There is Doppler evidence for diastolic dysfunction. No regional wall motion abnormalities noted. Right Ventricle The right ventricle is normal in size and function. Atria The left atrial size is normal. Right atrial size is normal. A dilated inferior vena cava suggests increased right atrial pressure. Mitral Valve The mitral valve is normal in structure and function. There is mild mitral regurgitation. Tricuspid Valve The tricuspid valve is normal in structure and function. There is no tricuspid stenosis. There is moderate tricuspid regurgitation. Right ventricular systolic pressure is 43mmHg. There is Doppler evidence for mild to moderate pulmonary hypertension. Aortic Valve The aortic valve is trileaflet. There is no aortic stenosis. There is no aortic insufficiency. Pulmonic Valve The pulmonic valve is not well visualized. Great Vessels The aortic root is normal size. Pericardium/Pleural There is no pericardial effusion. Conclusion A two-dimensional transthoracic echocardiogram with M-mode and Doppler was performed. (1) Left ventricular systolic ejection fraction was normal (65-70%) - normal wall motion (2) Borderline left ventricular hypertrophy (3) Diastolic dysfunction was present (4) Normal right ventricular size and function (5) Normal atrial dimensions (6) Mild mitral regurgitation (7) Trileaflet aortic valve without sclerosis or appreciable insufficiency (8) Moderate tricuspid regurgitation - RVSP was estimated to be 40-45 mm Hg (9) Poor visualization of the pulmonic valve (10) No comparison echocardiograms (11) Patient was in normal sinus rhythm over course of this study Final Reading Physician: Chelle Lopez signed on 09/06/2016 09:35 AM Ordering Physician: Capri Harp Performed By: Kenisha Mcneill
[2016-09-06 11:38] LABS: CHOLESTEROL 205 mg/dL (140-220); HIGH DENSITY LIPOPROTEIN 25 mg/dL (40-85); LOW DENSITY LIPOPROTEIN 150 mg/dL (80-100); NON-HIGH DENSITY LIPOPROTEIN 180 mg/dL (90-129); TRIGLYCERIDE 154 mg/dL (35-135); VERY LOW DENSITY LIPOPROTEINS 30 mg/dL (8-25)
--- NOTE | 2016-09-06 14:09 | PDCARCONS ---
Cardiology Consult Reason for Consult: atrial fibrillation Chief Complaint: palpitations Requesting Physician: hospitalist History of Present Illness: Patient is a 61 y/o female with history of hypothyroidism (on therapy) and INGRID ( with CPAP prescribed), but no HTN, HLP, CAD, or DM (per her reports), who presented to [facility] ER with complaints of palpitations. In speaking with the patient and review of ER and hospitalist notes, they symptoms have been noted for the past two weeks. Similar symptoms were noted about 10 years ago in association with a at that time. Moderate degree of stress also accompanied the events ten years ago. Two weeks ago, in the setting of a , the patient began to have salvos of palpitations that felt much like the palpitations of the past that were noted to be atrial fibrillation. Duration of the events over the past several weeks has been up to 4 hours. No associated chest pains or pressure, but today, there was bilateral arm paresthesias noted. No PND or orthopnea has been noted. Work up in the past without overt pathology noted. Patient was trying to get in to be seen by cardiology, and was able to get a holter monitor arranged. The study has been completed, but not formally read. Echocardiogram at bedside today without clear pathology noted - normal left ventricular systolic ejection fraction and grossly normal valve morphology. Of note, there is a significant degree of atrial fibrillation that runs in the family with several family members having ablations. 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 Remainder of the review of systems (10 point) is unremarkable History Information - Allergies/Home Medication List Allergies/Adverse Reactions: Sulfa (Sulfonamide Antibiotics) Allergy (Verified 08/28/16 12:34) Home Medications: Levothyroxine [Synthroid 125 mcg (*)] 125 mcg PO DAILY06 04/10/15 [Last Taken ] Progesterone,Micronized [Progesterone] 100 mg PO HS 04/10/15 [Last Taken ] traZODone [traZODONE 50MG (*)] 50 mg PO HS 04/10/15 [Last Taken 09/03/16] Zolpidem Tartrate [Ambien 10 mg] 5 mg PO HS 08/28/16 [Last Taken 09/04/16] Estradiol [Estradiol Transdermal Patch] 1 each TD SUWE 09/05/16 [Last Taken ] Fluticasone Propionate [Flonase Allergy Relief] 2 sprays NS HS 09/05/16 [Last Taken 09/04/16] Herbals/Supplements -Info Only 1 ea PO DAILY 09/05/16 [Last Taken 09/04/16] Liothyronine Sodium [Cytomel 5 mcg (*)] 5 mcg PO DAILY 09/05/16 [Last Taken ] cycloSPORINE 0.05% [Restasis Opht Drops(*)] 2 drop EACHEYE 09/05/16 [Last Taken 09/04/16] I have personally reviewed and updated: family history, medical history, social history, surgical history - Past Medical History atrial fibrillation - Surgical History Reports: appendectomy - Family History Additional family history: atrial fibrillation - Social History Smoking Status: Former smoker Alcohol Use: None Drug Use: None Cardiac History - Cardiac History Timing/Duration: Weeks Severity: moderate Severity Scale: 5 Location: substernal Activities at Onset: activity, emotional stress Modifying Factors: improves with: rest Associated Symptoms: denies symptoms, shortness of breath Physical Exam Temp Pulse Resp BP Pulse Ox 36.5 C 65 16 113/70 96 09/06/16 08:00 09/06/16 08:00 09/06/16 08:00 09/06/16 08:00 09/06/16 08:00 O2 (L/minute) 2 Constitutional: no apparent distress, appears nourished Eyes: PERRL Ears, Nose, Mouth, Throat: moist mucous membranes Cardiovascular: regular rate and rhythym, no murmur, rub, or gallop, No JVD Peripheral Pulses: 2+: dorsalis-pedis (R), dorsalis-pedis (L) Respiratory: no respiratory distress, clear to auscultation Gastrointestinal: normoactive bowel sounds Skin: warm Musculoskeletal: full muscle strength Neurologic: AAOx3, CN II-XII Intact Psychiatric: interacting appropriately, not anxious, not encephalopathic Lab and Imaging 09/05/16 12:30 09/05/16 12:30 WBC 7.82 10^3/uL (3.80-9.50) 09/05/16 12:30 RBC 5.40 10^6/uL (4.18-5.33) H 09/05/16 12:30 Hgb 16.9 g/dL (12.6-16.3) H 09/05/16 12:30 Hct 47.0 % (38.0-47.0) 09/05/16 12:30 MCV 87.0 fL (81.5-99.8) 09/05/16 12:30 MCH 31.3 pg (27.9-34.1) 09/05/16 12:30 MCHC 36.0 g/dL (32.4-36.7) 09/05/16 12:30 RDW 13.3 % (11.5-15.2) 09/05/16 12:30 Plt Count 348 10^3/uL (150-400) 09/05/16 12:30 MPV 9.4 fL (8.7-11.7) 09/05/16 12:30 Neut % (Auto) 59.2 % (39.3-74.2) 09/05/16 12:30 Lymph % (Auto) 27.4 % (15.0-45.0) 09/05/16 12:30 Glascock % (Auto) 6.1 % (4.5-13.0) 09/05/16 12:30 Eos % (Auto) 5.6 % (0.6-7.6) 09/05/16 12:30 Baso % (Auto) 1.3 % (0.3-1.7) 09/05/16 12:30 Nucleat RBC Rel Count 0.0 % (0.0-0.2) 09/05/16 12:30 Absolute Neuts (auto) 4.63 10^3/uL (1.70-6.50) 09/05/16 12:30 Absolute Lymphs (auto) 2.14 10^3/uL (1.00-3.00) 09/05/16 12:30 Absolute Monos (auto) 0.48 10^3/uL (0.30-0.80) 09/05/16 12:30 Absolute Eos (auto) 0.44 10^3/uL (0.03-0.40) H 09/05/16 12:30 Absolute Basos (auto) 0.10 10^3/uL (0.02-0.10) 09/05/16 12:30 Absolute Nucleated RBC 0.00 10^3/uL (0-0.01) 09/05/16 12:30 Immature Gran % 0.4 % (0.0-1.1) 09/05/16 12:30 Immature Gran # 0.03 10^3/uL (0.00-0.10) 09/05/16 12:30 PT 12.6 SEC (12.0-15.0) 09/05/16 12:30 INR 0.95 (0.83-1.16) 09/05/16 12:30 APTT 27.9 SEC (23.0-38.0) 09/05/16 12:30 Sodium 144 mEq/L (134-144) 09/05/16 12:30 Potassium 4.3 mEq/L (3.5-5.2) 09/05/16 12:30 Chloride 108 mEq/L (97-110) 09/05/16 12:30 Carbon Dioxide 21 mEq/l (22-31) L 09/05/16 12:30 Anion Gap 15 mEq/L (8-16) 09/05/16 12:30 BUN 13 mg/dL (7-23) 09/05/16 12:30 Creatinine 0.9 mg/dL (0.6-1.0) 09/05/16 12:30 Estimated GFR > 60 09/05/16 12:30 Glucose 111 mg/dL (70-100) H 09/05/16 12:30 Calcium 10.3 mg/dL (8.5-10.4) 09/05/16 12:30 Magnesium 2.2 mg/dL (1.6-2.3) 09/05/16 12:30 Total Bilirubin 1.0 mg/dL (0.1-1.4) 09/05/16 12:30 Conjugated Bilirubin 0.5 mg/dL (0.0-0.5) 09/05/16 12:30 Unconjugated Bilirubin 0.5 mg/dL (0.0-1.1) 09/05/16 12:30 AST 26 IU/L (14-46) 09/05/16 12:30 ALT 33 IU/L (9-52) 09/05/16 12:30 Alkaline Phosphatase 74 IU/L (38-126) 09/05/16 12:30 Creatine Kinase 56 IU/L (0-156) 09/05/16 12:30 CK-MB (CK-2) Fraction 0.71 ng/mL (0-3.19) 09/05/16 12:30 Troponin I < 0.012 ng/mL (0-0.034) 09/05/16 18:40 NT-Pro-B Natriuret Pep 478 pg/mL (0-125) H 09/05/16 12:30 Total Protein 8.2 g/dL (6.3-8.2) 09/05/16 12:30 Albumin 4.8 g/dL (3.5-5.0) 09/05/16 12:30 Triglycerides 154 mg/dL (35-135) H 09/05/16 18:00 Cholesterol 205 mg/dL (140-220) 09/05/16 18:00 Cholesterol Risk Factr 2.4 (0.2-1.0) H 09/05/16 18:00 LDL Cholesterol, Calc 150 mg/dL (80-100) H 09/05/16 18:00 LDL Risk Factor 2.8 (0.2-1.0) H 09/05/16 18:00 VLDL Cholesterol 30 mg/dL (8-25) H 09/05/16 18:00 Non-HDL Cholesterol 180 mg/dL (90-129) H 09/05/16 18:00 HDL Cholesterol 25 mg/dL (40-85) L 09/05/16 18:00 LDL/HDL Ratio 6.00 RATIO (1.00-3.22) H 09/05/16 18:00 Cholesterol/HDL Ratio 8.20 RATIO (1.00-4.44) H 09/05/16 18:00 Lipase 129.0 IU/L (23-300) 09/05/16 12:30 TSH 1.700 uIU/mL (0.465-4.680) 09/05/16 12:30 Visualized and Interpreted Chest x-ray results: Yes Chest X-ray Interpretation: no infiltrate, normal heart size Visualized and Interpreted EKG results: Yes EKG additional interpertation: initial ECG with atrial fibrillation and RVR, subsequent ECG with normal sinus rhythm and leftward axis. Telemetry: normal sinus rhythm Echocardiogram: normal sinus rhythm. moderate tricuspid regurgitation with RVSP of 40 mm Hg. normal chamber dimensions. A/P Assessment: 61 y/o female with history of INGRID and infrequent, sporatic use of CPAP with history of HTN (in past used therapy, at present is without therapy) and likely HLP (per patient reports) with an episode of atrial fibrillation - documented with visit to the ER. Patient with history of atrial fibrillation in the remote past. Echocardiogram with normal LV systolic function, and mild elevation to RVSP consistent with poorly treated sleep apnea. Atrial fibrillation spontaneously converted to normal sinus rhythm prior to the patient being seen by cardiology. Plan: Would arrange for patient to be seen by cardiology later this week (with a repeat ECG) Would start therapy on NOAC (Eliquis was chosen) Oral CCB therapy should be started Would consider LINQ implant (given affinity for external stickers for one month ) to determine frequency and duration of atrial fibrillation Patient should be seen by EP given the atrial arrhythmia history as well as the frequency of atrial fibrillation that has been noted by the patient.
== END 2016-09-06 12:22 | disposition home or self-care (01) ==
LOC: EDUNIT# → F1N 15:43
PROVIDERS: ADMIT Hospitalist; ATTEND Hospitalist
DX: I48.91 Unspecified atrial fibrillation (principal); R00.2 Palpitations; G47.33 Obstructive sleep apnea (adult) (pediatric); E03.9 Hypothyroidism, unspecified; F32.9 Major depressive disorder, single episode, unspecified; Z87.891 Personal history of nicotine dependence; Z78.0 Asymptomatic menopausal state; Z79.890 Hormone replacement therapy; Z88.2 Allergy status to sulfonamides
CPT/HCPCS: 71010; 93005; 93306; 96361; 96372; 96374; 99285; G0378; J1650

== ENCOUNTER → 2017-05-28 | Outpatient (CLI) | payer OTHER | LOC: FIMAGING 14:33 | PROVIDERS: ATTEND Obstetrics & Gynecology Gynecology | DX: Z12.31 Encounter for screening mammogram for malignant neoplasm of breast (principal) | CPT/HCPCS: G0202 ==

== ENCOUNTER → 2018-05-30 | Outpatient (CLI) | payer OTHER | LOC: FIMAGING 12:45 | PROVIDERS: ATTEND Obstetrics & Gynecology Gynecology | DX: Z12.31 Encounter for screening mammogram for malignant neoplasm of breast (principal) ==